=== PATIENT | male | born 1955 | race Two or more races ===

== ENCOUNTER 2020-01-30 10:29 | Outpatient (CLI) | payer OTHER | END 2020-01-30 10:35 | disposition home or self-care (01) | LOC: NUCLEAR 10:29 | PROVIDERS: ATTEND Internal Medicine | DX: I73.9 Peripheral vascular disease, unspecified (principal); I87.2 Venous insufficiency (chronic) (peripheral) ==

== ENCOUNTER 2020-01-31 09:42 | Outpatient (CLI) | payer OTHER | END 2020-01-31 09:49 | disposition home or self-care (01) | LOC: NUCLEAR 09:42 | PROVIDERS: ATTEND Internal Medicine | DX: I73.9 Peripheral vascular disease, unspecified (principal); I87.2 Venous insufficiency (chronic) (peripheral) ==

== ENCOUNTER 2020-07-17 13:58 | Outpatient (CLI) | payer OTHER | END 2020-07-17 14:41 | disposition home or self-care (01) | LOC: OFIC 805 13:58 | PROVIDERS: ATTEND Otolaryngology Otology & Neurotology | DX: J02.8 Acute pharyngitis due to other specified organisms (principal); K21.9 Gastro-esophageal reflux disease without esophagitis; J31.0 Chronic rhinitis; R68.2 Dry mouth, unspecified ==

== ENCOUNTER 2023-11-24 09:17 | Emergency (ER) | payer OTHER ==
[~2023-11-24] VITALS: Ht 180.3 cm; Wt 83.9 kg
[2023-11-24] MEDS ORDERED: ZESTRIL10 M1 PO (09:32)
[2023-11-24] MEDS ORDERED: BISOPROLOL FUMAR5 MG PO (09:32)
[2023-11-24] MEDS ORDERED: VITAMIN B-225 MG PO (09:32)
[2023-11-24] MEDS ORDERED: METHYLPREDNISOLONE SOD SUCC 40 MG VIAL IM ONE (12:15)
[2023-11-24] MEDS ORDERED: BENADRYL ALLERG25 MG PO (12:32)
[2023-11-24] MEDS ORDERED: METHYLPREDNISOLONE SOD SUCC 40 MG VIAL ONE (12:35)
== END 2023-11-24 12:50 | disposition home or self-care (01) ==
LOC: ER 09:19
DX: R21 Rash and other nonspecific skin eruption (principal); T78.40XA Allergy, unspecified, initial encounter; I10 Essential (primary) hypertension
CPT/HCPCS: 96372; 99282; J3490

== ENCOUNTER 2024-03-09 10:07 | Emergency (ER) | payer OTHER ==
[~2024-03-09] VITALS: Ht 180.3 cm; Wt 81.6 kg
[~2024-03-09 10:07] MED LIST: BENADRYL ALLERG25 MG PO; BISOPROLOL FUMAR5 MG PO; VITAMIN B-225 MG PO; ZESTRIL10 M1 PO
[2024-03-09] MEDS ORDERED: METHYLPREDNISOLONE SOD SUCC 125 MG VIAL IV ONE (10:30)
[2024-03-09] MEDS ORDERED: DIPHENHYDRAMINE HCL 50 MG/ML VIAL 1ML IM ONE (10:30)
[2024-03-09] MEDS ORDERED: FAMOtidine 10 MG/ML (4ML VIAL) IV PUSH ONE (10:45)
[2024-03-09] MEDS ORDERED: EPINEphrine 10 ML DISP.SYRIN IJ ONE (10:45)
[2024-03-09 11:51] VITALS: BP 130/77; O2SAT 100
== END 2024-03-09 11:51 | disposition home or self-care (01) ==
LOC: ER 10:10
DX: T78.3XXA Angioneurotic edema, initial encounter (principal); X58.XXXA Exposure to other specified factors, initial encounter; I10 Essential (primary) hypertension

== ENCOUNTER 2024-06-11 09:57 | Emergency (ER) | payer OTHER ==
[~2024-06-11] VITALS: Ht 180.3 cm; Wt 81.6 kg
[2024-06-11] MEDS ORDERED: DIPHENHYDRAMINE HCL 50 MG CAPSULE PO STA (10:30)
[2024-06-11] MEDS ORDERED: METHYLPREDNISOLONE SOD SUCC 125 MG VIAL IV STA (10:31)
[2024-06-11] MEDS ORDERED: METHYLPREDNISOLONE SOD SUCC 125 MG VIAL ONE (10:33)
== END 2024-06-11 12:39 | disposition home or self-care (01) ==
LOC: ER 09:58
DX: R53.81 Other malaise (principal); R21 Rash and other nonspecific skin eruption; T78.40XA Allergy, unspecified, initial encounter; I10 Essential (primary) hypertension

== ENCOUNTER → 2024-08-22 | Emergency (ER) | payer OTHER ==
[~2024-08-22] VITALS: Ht 180.3 cm; Wt 81.2 kg
[~2024-08-22] MED LIST changes: +DEXAMETHASONE SODIUM PHOSP/PF 10 MG/ML VIAL IV ONE; +DEXAMETHASONE SODIUM PHOSPHATE 4 MG/ML VIAL ONE; +DIPHENHYDRAMINE HCL 50 MG/ML VIAL 1ML IV ONE; +DIPHENHYDRAMINE HCL 50 MG/ML VIAL 1ML ONE; +FAMOTIDINE/PF 20 MG/2 ML VIAL ONE; +FAMOtidine 10 MG/ML (4ML VIAL) IV ONE; +MYRBETRIQ50 MG PO; +TAMS0.4C PO; +ZYRTEC10 MG PO
== END | disposition home or self-care (01) ==
LOC: ER 08:59
DX: T78.40XA Allergy, unspecified, initial encounter (principal); R21 Rash and other nonspecific skin eruption; I10 Essential (primary) hypertension

== ENCOUNTER 2024-12-09 08:30 | Emergency (ER) | payer OTHER ==
[~2024-12-09] VITALS: Ht 185.4 cm; Wt 83.5 kg
[~2024-12-09 08:30] MED LIST changes: +AZITHROMYCIN500 MG PO; -DEXAMETHASONE SODIUM PHOSP/PF 10 MG/ML VIAL IV ONE; -DEXAMETHASONE SODIUM PHOSPHATE 4 MG/ML VIAL ONE; -DIPHENHYDRAMINE HCL 50 MG/ML VIAL 1ML IV ONE; -DIPHENHYDRAMINE HCL 50 MG/ML VIAL 1ML ONE; -FAMOTIDINE/PF 20 MG/2 ML VIAL ONE; -FAMOtidine 10 MG/ML (4ML VIAL) IV ONE; +LASIX20 MG PO; +PEPCID AC20 MG PO; +SIMVASTATIN5 MG PO; +ZESTRIL40 M1 PO
[2024-12-09] MEDS ORDERED: ENALAPRILAT DIHYDRATE 2.5 MG/2 ML VIAL IV STA (10:01)
[2024-12-09] MEDS ORDERED: ENALAPRILAT DIHYDRATE 1.25 MG/ML VIAL IV ONE (10:02)
[2024-12-09 10:28] LABS: BASO % 0.9 % (0.1-1.2); EOS # 0.05 (0.04-0.54); EOS % 0.7 % (0.7-7.0); LYMPH # 0.85 (1.18-3.74); LYMPH % 12.2 % (19.3-53.1); MEAN PLATELET VOLUME 9.50 fl (9.4-12.4); MONO # 0.50 (0.24-0.82); MONO % 7.2 % (4.7-12.5); NEUT # 5.50 (1.56-6.13); NEUT % 78.9 % (34.0-71.1); RED CELL DISTRIBUTION WIDTH 11.6 % (11.6-14.4)
[2024-12-09 10:55] LABS: ALT/SGPT 39.0 U/L (12-78); AST/SGOT 46.0 U/L (15-37); BILIRUBIN TOTAL 0.63 mg/dL (0.3-1.2); BUN CREA RATIO 16.0 (7.0-25.0); CREATININE SERUM 1.22 mg/dL (0.70-1.30); GFR 58.72; GLOBULINA 2.8 G/DL (2.4-3.5); GLUCOSE FASTING 107.0 mg/dL (65-100); OSMOLALITY SERUM 291.0 MOSM/KG (275-295)
[2024-12-09] MEDS ORDERED: NIFEDIPINE 10 MG CAPSULE PO STA (12:10)
[2024-12-09] MEDS ORDERED: NIFEDIPINE 10 MG CAPSULE PO ONE (12:13)
== END 2024-12-09 14:12 | disposition home or self-care (01) ==
LOC: ER 08:30
PROVIDERS: General Practice
DX: I10 Essential (primary) hypertension (principal)

== ENCOUNTER 2024-12-14 08:23 | Emergency (ER) | payer OTHER ==
[~2024-12-14] VITALS: Ht 180.3 cm; Wt 83.5 kg
[2024-12-14 08:44] VITALS: O2SAT 100
[2024-12-14] MEDS ORDERED: NIFEDIPINE 10 MG CAPSULE PO ONE ×2 (09:30)
[2024-12-14 09:43] LABS: BASO % 1.0 % (0.1-1.2); EOS # 0.07 (0.04-0.54); EOS % 1.0 % (0.7-7.0); LYMPH # 0.86 (1.18-3.74); LYMPH % 11.9 % (19.3-53.1); MEAN PLATELET VOLUME 9.30 fl (9.4-12.4); MONO # 0.58 (0.24-0.82); MONO % 8.1 % (4.7-12.5); NEUT # 5.61 (1.56-6.13); NEUT % 77.9 % (34.0-71.1); RED CELL DISTRIBUTION WIDTH 11.8 % (11.6-14.4)
[2024-12-14 10:37] LABS: ALT/SGPT 33.0 U/L (12-78); AST/SGOT 23.0 U/L (15-37); BILIRUBIN TOTAL 0.56 mg/dL (0.3-1.2); BUN CREA RATIO 15.0 (7.0-25.0); CREATININE SERUM 1.18 mg/dL (0.70-1.30); GFR 61.03; GLOBULINA 2.4 G/DL (2.4-3.5); GLUCOSE FASTING 108.0 mg/dL (65-100); OSMOLALITY SERUM 291.0 MOSM/KG (275-295)
[2024-12-14] MEDS ORDERED: LASIX20 MG PO (13:11)
[2024-12-14 13:20] VITALS: BP 115/78
== END 2024-12-14 13:21 | disposition home or self-care (01) ==
LOC: ER 08:23
PROVIDERS: General Practice
DX: I10 Essential (primary) hypertension (principal); R06.02 Shortness of breath; Z85.46 Personal history of malignant neoplasm of prostate

== ENCOUNTER 2025-01-06 09:50 | Inpatient (IN) | payer OTHER ==
[~2025-01-06] VITALS: Ht 180.3 cm; Wt 84.4 kg
--- NOTE | 2025-01-06 10:15 | NUR ---
SE RECIBE PACIENTE ALERTA Y ORIENTADO X3 QUIEN REFIERE TENER CONGESTION NASAL Y DOLOR DE [place]. SE MIDEN S/V Y SE UBICA EN KENDY DE [place].
[2025-01-06] MEDS ORDERED: BENICAR40 MG PO (10:19)
[2025-01-06] MEDS ORDERED: AMLODIPINE-OLM1 EAC2 PO (10:20)
[2025-01-06] MEDS ORDERED: IPRATROPIUM BROMIDE 0.5 MG/2.5 ML AMPUL.NEB IH ONE (10:45)
[2025-01-06] MEDS ORDERED: FAMOTIDINE/PF 20 MG in 0.9 % SODIUM CHLORIDE 8 ML IV PUSH ONE (10:45)
--- NOTE | 2025-01-06 12:15 | NUR ---
SE ORIENTA A PACIENTE SOBRE TRATAMIENTO MEDICO. PACIENTE REFIERE COMPRENDER TRATAMIENTO MEDICO. SE ADMINISTRA MEDICAMENTOS Y SE MAGEN MUESTRAS SIGUIENDO LAS MEDIDAS ASEPTICAS. SE UBICA EN K1 PARA TERAPIA RESPIRATORIA Y CONTINUAMIENTO DE TRATAMIENTO Y MONITOREO.
[2025-01-06 12:39] LABS: BASO % 0.5 % (0.1-1.2); EOS # 0.01 (0.04-0.54); EOS % 0.1 % (0.7-7.0); LYMPH # 0.65 (1.18-3.74); LYMPH % 8.7 % (19.3-53.1); MEAN PLATELET VOLUME 10.10 fl (9.4-12.4); MONO # 0.57 (0.24-0.82); MONO % 7.6 % (4.7-12.5); NEUT # 6.21 (1.56-6.13); NEUT % 83.0 % (34.0-71.1); RED CELL DISTRIBUTION WIDTH 11.5 % (11.6-14.4)
[2025-01-06 13:08] LABS: INR 1.06
[2025-01-06 13:11] LABS: ALT/SGPT 21.0 U/L (12-78); AST/SGOT 26.0 U/L (15-37); BILIRUBIN TOTAL 0.79 mg/dL (0.3-1.2); BUN CREA RATIO 19.0 (7.0-25.0); CREATININE SERUM 1.87 mg/dL (0.70-1.30); GFR 35.87; GLOBULINA 3.0 G/DL (2.4-3.5); GLUCOSE FASTING 111.0 mg/dL (65-100); OSMOLALITY SERUM 294.0 MOSM/KG (275-295)
[2025-01-06] MEDS ORDERED: NITROGLYCERIN IN 5 % DEXTROSE 250 ML IV SCH (14:15)
[2025-01-06 18:17] VITALS: BP 170/84; O2SAT 97
[2025-01-06 18:43] LABS: CHOL HDL RATIO 3.5 (0-5.0); HDL 45.0 mg/dl (40-60); LDL 92.0 mg/dl (0-130); VLDL 21.0 (0-39)
[2025-01-06 18:50] LABS: TSH 0.828 uIU/mL (0.358-3.74)
[2025-01-06 19:32] LABS: COVID-19 AG NEGATIVE (NEGATIVE)
[2025-01-06 20:32] VITALS: O2SAT 97
[2025-01-06 21:57] VITALS: BP 166/73; O2SAT 96
[2025-01-06 22:34] VITALS: BP 172/75; O2SAT 97
[2025-01-06 23:11] VITALS: BP 157/74; O2SAT 98
[2025-01-07] VITALS (21 sets, daily range): BP systolic 142–186; BP diastolic 70–88; O2SAT 96–99
[2025-01-07] MEDS ORDERED: PANTOPRAZOLE SODIUM 40 MG TABLET.DR PO SCH (09:00)
[2025-01-07 13:51] LABS: ob NEGATIVE (NEGATIVE)
[2025-01-07 14:18] LABS: URINE APPEARANCE Clear; URINE BILIRRUBIN Negative (NEGATIVE); URINE BLOOD Large; URINE COLOR Yellow; URINE GLUCOSE Negative (NEGATIVE); URINE KETONE Negative (NEGATIVE); URINE LEUKOCYTE Negative; URINE NITRATE Negative; URINE UROBILINOGEN 0.2 E.U./dl
[2025-01-07 14:26] LABS: URINE BACTERIA 158.3 uL (0.0-1933); URINE CAST 2.93 uL (0.0-1.40); URINE EPITHELIAL CELLS 10.9 uL (0.0-38.8); URINE RBC 2401.3 uL (0.0-20.8); URINE WBC 36.4 uL (0.0-23.2)
[2025-01-07 14:28] LABS: URINE PROTEIN 100 (NEGATIVE)
[2025-01-07] MEDS ORDERED: AMLODIPINE BESYLATE 5 MG TABLET PO NR (15:30)
[2025-01-07] MEDS ORDERED: AMLODIPINE BESYLATE 5 MG TABLET PO STA (18:19)
[2025-01-07] MEDS ORDERED: ACETAMINOPHEN 500 MG GEL..CAP PO PRN (21:00)
[2025-01-08] VITALS (17 sets, daily range): BP systolic 115–180; BP diastolic 59–109; O2SAT 19–100
[2025-01-08] MEDS ORDERED: LORazepam 2 MG/ML VIAL IV PUSH STA (03:13)
[2025-01-08] MEDS ORDERED: DIPHENHYDRAMINE HCL 50 MG/ML VIAL 1ML IV STA (03:14)
[2025-01-08] MEDS ORDERED: AMLODIPINE BESYLATE 10 MG TABLET PO SCH (09:00)
[2025-01-08] MEDS ORDERED: AMLODIPINE BESYLATE 5 MG TABLET PO SCH (09:00)
[2025-01-08] MEDS ORDERED: QUETIAPINE FUMARATE 25 MG TABLET PO SCH (09:00)
[2025-01-08 09:04] LABS: BASO % 0.6 % (0.1-1.2); EOS # 0.01 (0.04-0.54); EOS % 0.1 % (0.7-7.0); LYMPH # 0.97 (1.18-3.74); LYMPH % 8.9 % (19.3-53.1); MEAN PLATELET VOLUME 10.30 fl (9.4-12.4); MONO # 0.90 (0.24-0.82); MONO % 8.3 % (4.7-12.5); NEUT # 8.84 (1.56-6.13); NEUT % 81.5 % (34.0-71.1); RED CELL DISTRIBUTION WIDTH 11.7 % (11.6-14.4)
[2025-01-08 09:26] LABS: ALT/SGPT 25.0 U/L (12-78); AST/SGOT 38.0 U/L (15-37); BILIRUBIN TOTAL 1.49 mg/dL (0.3-1.2); BUN CREA RATIO 19.0 (7.0-25.0); CREATININE SERUM 1.96 mg/dL (0.70-1.30); GFR 33.98; GLOBULINA 2.3 G/DL (2.4-3.5); GLUCOSE FASTING 101.0 mg/dL (65-100); OSMOLALITY SERUM 298.0 MOSM/KG (275-295)
[2025-01-08] MEDS ORDERED: DIPHENHYDRAMINE HCL 50 MG/ML VIAL 1ML IV PRN (09:30)
[2025-01-08] MEDS ORDERED: LORazepam 2 MG/ML VIAL IV PRN ×2 (09:30→14:48)
[2025-01-08] MEDS ORDERED: POTASSIUM CHLORIDE IN WATER 40 MEQ/100 ML PIGGYBAG IV STA (09:38)
[2025-01-08] MEDS ORDERED: POTASSIUM BICARBONATE/CIT AC 25 MEQ TABLET.EFF PO NR (10:15)
[2025-01-08 16:46] LABS: BILIRUBIN TOTAL 1.44 mg/dL (0.3-1.2); BILIRUBIN,CONJUGATED 0.35 mg/dL (0.0-0.2); LDH 332.0 U/L (87-241)
[2025-01-08] MEDS ORDERED: POTASSIUM CHLORIDE IN WATER 40 MEQ/100 ML PIGGYBAG IV SCH (21:00)
[2025-01-09 05:31] VITALS: BP 170/77; O2SAT 98
[2025-01-09 06:54] LABS: BASO % 0.5 % (0.1-1.2); EOS # 0.02 (0.04-0.54); EOS % 0.2 % (0.7-7.0); LYMPH # 0.59 (1.18-3.74); LYMPH % 6.3 % (19.3-53.1); MEAN PLATELET VOLUME 9.90 fl (9.4-12.4); MONO # 0.53 (0.24-0.82); MONO % 5.6 % (4.7-12.5); NEUT # 8.17 (1.56-6.13); NEUT % 87.0 % (34.0-71.1); RED CELL DISTRIBUTION WIDTH 12.0 % (11.6-14.4)
[2025-01-09 07:19] VITALS: BP 140/67; O2SAT 100
[2025-01-09 07:41] LABS: ALT/SGPT 23.0 U/L (12-78); AST/SGOT 33.0 U/L (15-37); BILIRUBIN TOTAL 1.33 mg/dL (0.3-1.2); BUN CREA RATIO 24.0 (7.0-25.0); CREATININE SERUM 2.07 mg/dL (0.70-1.30); GFR 31.9; GLOBULINA 2.5 G/DL (2.4-3.5); GLUCOSE FASTING 95.0 mg/dL (65-100); OSMOLALITY SERUM 305.0 MOSM/KG (275-295)
[2025-01-09 12:00] VITALS: BP 119/59; O2SAT 100
[2025-01-09] MEDS ORDERED: METOPROLOL SUCCINATE 25 MG TAB.SR.24H PO NR (12:00)
[2025-01-09 13:30] LABS: FOLIC ACID > 20.00 ng/ml (4.78-20)
[2025-01-09 15:04] VITALS: O2SAT 100
[2025-01-09 21:26] VITALS: BP 136/63; O2SAT 98
[2025-01-10 03:06] VITALS: BP 141/65; O2SAT 97
[2025-01-10 06:12] LABS: BASO % 0.4 % (0.1-1.2); EOS # 0.08 (0.04-0.54); EOS % 0.8 % (0.7-7.0); LYMPH # 0.84 (1.18-3.74); LYMPH % 8.4 % (19.3-53.1); MEAN PLATELET VOLUME 11.00 fl (9.4-12.4); MONO # 0.75 (0.24-0.82); MONO % 7.5 % (4.7-12.5); NEUT # 8.28 (1.56-6.13); NEUT % 82.3 % (34.0-71.1); RED CELL DISTRIBUTION WIDTH 12.1 % (11.6-14.4)
[2025-01-10 06:39] LABS: ALT/SGPT 23.0 U/L (12-78); AST/SGOT 32.0 U/L (15-37); BILIRUBIN TOTAL 1.34 mg/dL (0.3-1.2); BUN CREA RATIO 25.0 (7.0-25.0); CREATININE SERUM 2.19 mg/dL (0.70-1.30); GFR 29.89; GLOBULINA 2.6 G/DL (2.4-3.5); GLUCOSE FASTING 91.0 mg/dL (65-100); OSMOLALITY SERUM 307.0 MOSM/KG (275-295)
[2025-01-10] MEDS ORDERED: ENOXAPARIN SODIUM 30 MG/0.3 ML SYRINGE SUBCUTANEO SCH (09:00)
[2025-01-10] MEDS ORDERED: METOPROLOL SUCCINATE 25 MG TAB.SR.24H PO SCH ×2 (09:00→17:00)
[2025-01-10 09:36] VITALS: BP 122/67; O2SAT 97
[2025-01-10 16:59] VITALS: O2SAT 96
[2025-01-10] MEDS ORDERED: AMLODIPINE BESYLATE 5 MG TABLET PO SCH (17:00)
[2025-01-10 17:36] VITALS: BP 130/66; O2SAT 97
[2025-01-10] MEDS ORDERED: ALUMINUM HYDROXIDE PO ONE (18:30)
[2025-01-10] MEDS ORDERED: MAGNESIUM HYDROXIDE PO ONE (18:30)
[2025-01-10] MEDS ORDERED: LIDOCAINE HCL PO ONE (18:30)
[2025-01-10] MEDS ORDERED: ONDANSETRON HCL 2 MG/ML VIAL IV PRN (18:30)
[2025-01-10] MEDS ORDERED: DIPHENHYDRAMINE HCL PO ONE (18:30)
[2025-01-10] MEDS ORDERED: SIMETHICONE PO ONE (18:30)
[2025-01-10 19:51] VITALS: O2SAT 97
[2025-01-11] VITALS (9 sets, daily range): BP systolic 122–136; BP diastolic 60–65; O2SAT 90–98
[2025-01-11] MEDS ORDERED: ALLOPURINOL 100 MG TABLET PO NR (11:30)
[2025-01-11 16:29] LABS: BILIRUBIN TOTAL 0.98 mg/dL (0.3-1.2); BILIRUBIN,CONJUGATED 0.26 mg/dL (0.0-0.2)
[2025-01-11 16:42] LABS: ALT/SGPT 21.0 U/L (12-78); AST/SGOT 24.0 U/L (15-37); BILIRUBIN TOTAL 0.98 mg/dL (0.3-1.2); BUN CREA RATIO 31.0 (7.0-25.0); CREATININE SERUM 1.83 mg/dL (0.70-1.30); GFR 36.78; GLOBULINA 2.9 G/DL (2.4-3.5); GLUCOSE FASTING 113.0 mg/dL (65-100); OSMOLALITY SERUM 311.0 MOSM/KG (275-295)
[2025-01-12] VITALS (8 sets, daily range): BP systolic 134–151; BP diastolic 54–75; O2SAT 90–99
[2025-01-12 04:58] LABS: BASO % 0.5 % (0.1-1.2); EOS # 0.16 (0.04-0.54); EOS % 1.8 % (0.7-7.0); LYMPH # 0.92 (1.18-3.74); LYMPH % 10.1 % (19.3-53.1); MEAN PLATELET VOLUME 10.20 fl (9.4-12.4); MONO # 0.71 (0.24-0.82); MONO % 7.8 % (4.7-12.5); NEUT # 7.16 (1.56-6.13); NEUT % 78.5 % (34.0-71.1); RED CELL DISTRIBUTION WIDTH 11.7 % (11.6-14.4)
[2025-01-12 05:25] LABS: ALT/SGPT 20.0 U/L (12-78); AST/SGOT 22.0 U/L (15-37); BILIRUBIN TOTAL 0.98 mg/dL (0.3-1.2); BUN CREA RATIO 32.0 (7.0-25.0); CREATININE SERUM 1.67 mg/dL (0.70-1.30); GFR 40.87; GLOBULINA 2.7 G/DL (2.4-3.5); GLUCOSE FASTING 99.0 mg/dL (65-100); OSMOLALITY SERUM 307.0 MOSM/KG (275-295)
[2025-01-12] MEDS ORDERED: CLOTRIMAZOLE 10 MG TROCHE MM SCH (13:13)
[2025-01-12] MEDS ORDERED: METHYLPREDNISOLONE SOD SUCC 40 MG VIAL IV STA (13:13)
[2025-01-12] MEDS ORDERED: LORATADINE 10 MG TABLET PO SCH (17:00)
[2025-01-12 18:44] LABS: COVID-19 AG NEGATIVE (NEGATIVE)
[2025-01-13 01:04] VITALS: O2SAT 92
[2025-01-13 03:10] VITALS: BP 130/62; O2SAT 92
[2025-01-13 05:49] VITALS: O2SAT 91
[2025-01-13 08:58] VITALS: BP 139/75; O2SAT 94
[2025-01-13] MEDS ORDERED: ALLOPURINOL 100 MG TABLET PO SCH (09:00)
[2025-01-13 09:26] VITALS: O2SAT 90
[2025-01-13] MEDS ORDERED: LORATADINE10 MG PO (11:44)
[2025-01-13] MEDS ORDERED: AMLODIPINE BESYL5 MG PO (11:44)
[2025-01-13] MEDS ORDERED: TOPROL XL25 M1 PO (11:44)
[2025-01-13] MEDS ORDERED: HYDRALAZINE HCL25 MG PO (11:45)
[2025-01-13] MEDS ORDERED: PANTOPRAZOLE SO40 MG PO (11:45)
[2025-01-13] MEDS ORDERED: ZYLOPRIM100 M1 PO (11:46)
[2025-01-13] MEDS ORDERED: LASIX20 MG PO (11:46)
[2025-01-13] MEDS ORDERED: CLOTRIMAZOLE10 MG MM (11:46)
[2025-01-13] MEDS ORDERED: MEDROLPACK PO (11:46)
== END 2025-01-13 15:42 | disposition home or self-care (01) | DRG 291 ==
LOC: ER 09:50 → MEDJ 15:36 → ICU 22:29 → MEDI 01-09 18:43
PROVIDERS: General Practice; Internal Medicine; ADMIT Internal Medicine; ATTEND Internal Medicine
PROC: BB24ZZZ Computerized Tomography (CT Scan) of Bilateral Lungs (ICD-10-PCS; principal; 2025-01-06)
PROC: B54BZZZ Ultrasonography of Right Lower Extremity Veins (ICD-10-PCS; 2025-01-06)
PROC: B246ZZZ Ultrasonography of Right and Left Heart (ICD-10-PCS; 2025-01-06)
PROC: 4A12X4Z Monitoring of Cardiac Electrical Activity, External Approach (ICD-10-PCS; 2025-01-06)
PROC: 3E0F7GC Introduction of Other Therapeutic Substance into Respiratory Tract, Via Natural or Artificial Opening (ICD-10-PCS; 2025-01-06)
PROC: 30233N1 Transfusion of Nonautologous Red Blood Cells into Peripheral Vein, Percutaneous Approach (ICD-10-PCS; 2025-01-07)
PROC: BW2FZZZ Computerized Tomography (CT Scan) of Neck (ICD-10-PCS; 2025-01-12)
PROC: BW21ZZZ Computerized Tomography (CT Scan) of Abdomen and Pelvis (ICD-10-PCS; 2025-01-12)
DX: I11.0 Hypertensive heart disease with heart failure (principal); E88.3 Tumor lysis syndrome; N17.9 Acute kidney failure, unspecified; I50.9 Heart failure, unspecified; K21.9 Gastro-esophageal reflux disease without esophagitis; J02.9 Acute pharyngitis, unspecified; R59.1 Generalized enlarged lymph nodes; N35.919 Unspecified urethral stricture, male, unspecified site; R06.00 Dyspnea, unspecified; R06.01 Orthopnea

== ENCOUNTER 2025-02-20 08:25 | Inpatient (IN) | payer OTHER ==
[~2025-02-20] VITALS: Ht 175.3 cm; Wt 72.6 kg
[~2025-02-20 08:25] MED LIST changes: +AMLODIPINE BESYL5 MG PO; +AMLODIPINE-OLM1 EAC2 PO; +BENICAR40 MG PO; +CLOTRIMAZOLE10 MG MM; +HYDRALAZINE HCL25 MG PO; +LORATADINE10 MG PO; +MEDROLPACK PO; +PANTOPRAZOLE SO40 MG PO; +TOPROL XL25 M1 PO; +ZYLOPRIM100 M1 PO
--- NOTE | 2025-02-20 09:07 | NUR ---
PACIENTE MASCULINO ALERTA Y ORIENTADO ACOMPANADO DE FAMILIAR REFIERE TENER DIFICULTAD RESPIRATORIA EN LA NOCHE. SE MIDE SIGNOS VITALES Y SE UBICA
[2025-02-20] MEDS ORDERED: LEVALBUTEROL HCL 1.25 MG/3 ML SOLUTION IH SCH (09:26)
[2025-02-20] MEDS ORDERED: FAMOtidine 10 MG/ML (4ML VIAL) IV ONE (09:30)
[2025-02-20] MEDS ORDERED: 0.9 % SODIUM CHLORIDE 1,000 ML IV ONE (09:30)
[2025-02-20] MEDS ORDERED: DILTIAZEM HCL 60 MG TABLET PO ONE (09:45)
[2025-02-20] MEDS ORDERED: LABETALOL HCL 200 MG/40 ML VIAL IV ONE (09:45)
[2025-02-20] MEDS ORDERED: LEVALBUTEROL HCL 1.25 MG/3 ML SOLUTION IH ONE ×2 (10:03→15:44)
[2025-02-20] MEDS ORDERED: DILTIAZEM HCL 30 MG TABLET PO ONE (10:33)
[2025-02-20] MEDS ORDERED: LABETALOL HCL 100 MG/20 ML ML ONE (10:34)
[2025-02-20] MEDS ORDERED: FAMOTIDINE/PF 20 MG/2 ML VIAL ONE (10:35)
[2025-02-20 10:44] LABS: URINE APPEARANCE Clear; URINE BILIRRUBIN Negative (NEGATIVE); URINE BLOOD Large; URINE COLOR Yellow; URINE GLUCOSE Negative (NEGATIVE); URINE KETONE Negative (NEGATIVE); URINE LEUKOCYTE Trace; URINE NITRATE Negative; URINE UROBILINOGEN 0.2 E.U./dl
[2025-02-20 10:46] LABS: URINE BACTERIA 133.8 uL (0.0-1933); URINE CAST 2.12 uL (0.0-1.40); URINE EPITHELIAL CELLS 5.0 uL (0.0-38.8); URINE RBC 228.6 uL (0.0-20.8); URINE WBC 40.7 uL (0.0-23.2)
[2025-02-20 10:59] LABS: URINE PROTEIN 300 (NEGATIVE)
[2025-02-20 11:09] LABS: BASO % 1.0 % (0.1-1.2); EOS # 0.03 (0.04-0.54); EOS % 0.3 % (0.7-7.0); LYMPH # 1.86 (1.18-3.74); LYMPH % 18.7 % (19.3-53.1); MEAN PLATELET VOLUME 10.10 fl (9.4-12.4); MONO # 0.67 (0.24-0.82); MONO % 6.7 % (4.7-12.5); NEUT # 7.27 (1.56-6.13); NEUT % 73.1 % (34.0-71.1); RED CELL DISTRIBUTION WIDTH 15.2 % (11.6-14.4)
[2025-02-20 11:22] LABS: INR 1.06
[2025-02-20 11:33] LABS: ALT/SGPT 20.0 U/L (12-78); AST/SGOT 18.0 U/L (15-37); BILIRUBIN TOTAL 0.41 mg/dL (0.3-1.2); BUN CREA RATIO 19.0 (7.0-25.0); CREATININE SERUM 0.91 mg/dL (0.70-1.30); GFR 82.36; GLOBULINA 2.5 G/DL (2.4-3.5); GLUCOSE FASTING 98.0 mg/dL (65-100); OSMOLALITY SERUM 292.0 MOSM/KG (275-295)
[2025-02-20] MEDS ORDERED: PIPERACILLIN/TAZOBACTAM SODIUM 3.375 GM in DEXTROSE 5 % IN WATER 100 ML IV SCH (12:39)
[2025-02-20] MEDS ORDERED: PIPERACILLIN/TAZOBACTAM SODIUM 3.375 GM VIAL IV ONE (12:41)
[2025-02-20] MEDS ORDERED: NITROGLYCERIN IN 5 % DEXTROSE 250 ML IV SCH (17:30)
[2025-02-20 19:00] VITALS: BP 178/87; O2SAT 98
[2025-02-20] MEDS ORDERED: NITROGLYCERIN IN 5 % DEXTROSE 50 MG/250 ML BOTTLE IV ONE (19:03)
[2025-02-20 20:00] VITALS: BP 190/90; O2SAT 96
[2025-02-20 21:51] VITALS: BP 188/87; O2SAT 100
[2025-02-20] MEDS ORDERED: LOSARTAN/HYDROCHLOROTHIAZIDE 1 UDTAB TABLET PO SCH (22:02)
[2025-02-20 23:16] VITALS: BP 192/87; O2SAT 98
[2025-02-21] VITALS (27 sets, daily range): BP systolic 145–199; BP diastolic 62–155; O2SAT 97–100
[2025-02-21 06:47] LABS: BASO % 0.7 % (0.1-1.2); EOS # 0.01 (0.04-0.54); EOS % 0.1 % (0.7-7.0); LYMPH # 1.82 (1.18-3.74); LYMPH % 14.8 % (19.3-53.1); MEAN PLATELET VOLUME 10.20 fl (9.4-12.4); MONO # 0.86 (0.24-0.82); MONO % 7.0 % (4.7-12.5); NEUT # 9.46 (1.56-6.13); NEUT % 77.2 % (34.0-71.1); RED CELL DISTRIBUTION WIDTH 15.2 % (11.6-14.4)
[2025-02-21] MEDS ORDERED: NITROGLYCERIN IN 5 % DEXTROSE 250 ML IV SCH (07:15)
[2025-02-21 07:17] LABS: INR 1.08
[2025-02-21 07:38] LABS: BUN CREA RATIO 14.0 (7.0-25.0); CREATININE SERUM 1.2 mg/dL (0.70-1.30); GFR 59.85; GLUCOSE FASTING 89.0 mg/dL (65-100); OSMOLALITY SERUM 295.0 MOSM/KG (275-295)
[2025-02-21] MEDS ORDERED: ENALAPRILAT DIHYDRATE 1.25 MG/ML VIAL IV PRN (08:00)
[2025-02-21] MEDS ORDERED: HALOPERIDOL LACTATE 5 MG/ML AMPUL IM PRN (08:15)
[2025-02-21] MEDS ORDERED: ENOXAPARIN SODIUM 80 MG/0.8 ML SYRINGE SUBCUTANEO SCH (09:00)
[2025-02-21] MEDS ORDERED: CLONAZEPAM 0.5 MG TABLET PO SCH (09:00)
[2025-02-21] MEDS ORDERED: CHLORHEXIDINE GLUCONATE 120 ML BOTTLE TOP ONE (09:30)
[2025-02-21] MEDS ORDERED: LOSARTAN/HYDROCHLOROTHIAZIDE 1 UDTAB TABLET PO SCH (10:00)
[2025-02-22] VITALS (14 sets, daily range): BP systolic 108–190; BP diastolic 50–107; O2SAT 98–100
[2025-02-23 04:00] VITALS: BP 134/73; O2SAT 98
[2025-02-23 07:38] VITALS: BP 166/72; O2SAT 99
[2025-02-23] MEDS ORDERED: ENALAPRILAT DIHYDRATE 1.25 MG/ML VIAL IV NR (08:15)
[2025-02-23 12:00] VITALS: BP 156/80; O2SAT 99
[2025-02-23 16:00] VITALS: BP 158/74; O2SAT 100
== END 2025-02-23 17:10 | disposition home or self-care (01) | DRG 188 ==
LOC: ER 08:26 → ICU 17:22 → ICU-2 17:22 → ICU 21:56
PROVIDERS: General Practice; ADMIT Internal Medicine; ATTEND Internal Medicine
PROC: 3E0F7GC Introduction of Other Therapeutic Substance into Respiratory Tract, Via Natural or Artificial Opening (ICD-10-PCS; principal; 2025-02-20)
PROC: 4A033R1 Measurement of Arterial Saturation, Peripheral, Percutaneous Approach (ICD-10-PCS; 2025-02-20)
PROC: B246ZZZ Ultrasonography of Right and Left Heart (ICD-10-PCS; 2025-02-20)
PROC: BB24ZZZ Computerized Tomography (CT Scan) of Bilateral Lungs (ICD-10-PCS; 2025-02-20)
DX: J90 Pleural effusion, not elsewhere classified (principal); I10 Essential (primary) hypertension; R60.0 Localized edema; I50.9 Heart failure, unspecified